=== PATIENT | male | born 1955 | race Caucasian/White ===

== ENCOUNTER 2024-10-20 06:41 | Observation (INO) ==
--- NOTE | 2024-10-20 07:05 | DR.ABDMALE ---
HPI <KATT WYATT Last Filed: 10/20/24 13:16> Time seen Time Seen by Provider: 10/20/24 07:00 HPI comment HPI Comment: History as below. Complaint Chief Complaint Doctors Comments: Patient is 69-year-old male here with lower back pain for about 4 days with nausea vomiting and diarrhea patient denies fever he is on Ozempic and at bedtime increase the dosage patient denies dysuria or trauma. Reviewed Nurses Notes Review: Yes PMH <KATT WYATT - Last Filed: 10/20/24 13:16> PMH Past Medical History: Diabetes, Dyslipidemia and Hypertension Past Surgical History: Yes Surgical History: Cholecystectomy Family History Family Medical History: Hypertension Social History Do you use any recreational Drugs:: No Travel Risk Coronavirus risk:travel/contact w/high risk person: No ROS <KATT WYATT - Last Filed: 10/20/24 13:16> Review of Systems Constitutional: No Symptoms Reported and See HPI; negative Fever Eyes: No Symptoms Reported and See HPI ENTM: No Symptoms Reported and See HPI Respiratoy: No Symptoms Reported and See HPI Cardiovascular: No Symptoms Reported and See HPI Gastrointestinal/Abdominal: See HPI, Diarrhea, Nausea and Vomiting Genitourinary: No Symptoms Reported Neurological: No Symptoms Reported Musculoskeletal: Back Pain (low back pain.) Integumentary: No Symptoms Reported Hematologic/Lymphatic: No Symptoms Reported Endocrine: No Symptoms Reported Psychiatric: No Symptoms Reported All Other Systems: Reviewed and Negative PE <KATT WYATT Last Filed: 10/20/24 13:16> Vital Signs Vital Signs: Temp Pulse Resp BP Pulse Ox O2 Del Method 10/20/24 13:30 98 H 22 97 10/20/24 13:30 107/54 10/20/24 13:20 101/60 10/20/24 13:20 102 H 14 97 10/20/24 13:15 96 H 14 96 10/20/24 13:10 107/55 10/20/24 13:10 97 H 21 95 10/20/24 13:00 111/59 10/20/24 13:00 99 H 17 98 10/20/24 12:50 105/57 10/20/24 12:50 94 H 13 96 10/20/24 12:45 88 16 96 10/20/24 12:40 97/56 10/20/24 12:40 87 16 97 10/20/24 12:30 114/58 10/20/24 12:30 91 H 14 98 10/20/24 12:20 99 H 29 H 96 10/20/24 12:20 107/74 10/20/24 12:15 92 H 15 95 10/20/24 12:10 130/63 10/20/24 12:10 102 H 16 97 10/20/24 12:00 119/64 10/20/24 12:00 91 H 15 95 10/20/24 11:50 103/64 10/20/24 11:50 86 14 95 10/20/24 11:45 89 15 95 10/20/24 11:40 92/61 10/20/24 11:40 91 H 16 96 10/20/24 11:30 98/54 10/20/24 11:30 93 H 20 96 10/20/24 11:20 86/69 10/20/24 11:20 86 16 95 10/20/24 11:18 136/64 10/20/24 11:15 89 12 95 10/20/24 11:02 133 H 21 95 10/20/24 10:33 16 10/20/24 08:03 16 10/20/24 07:33 18 10/20/24 06:42 98.3 F 95 H 20 136/64 95 Room Air General Limitations: No Limitations General Appearance: Alert and In No Apparent Distress Head Head Exam: Normal Inspection Eyes Eye exam: Normal Appearance; negative Scleral Icterus or Conjunctival Injection ENT ENT Exam: Normal Exam, Normal Oropharynx, Normal External Ear Exam and TM's Normal Bilaterally Neck Neck Exam: Normal Inspection and Trachea Midline; negative Tenderness Chest Chest Inspection: Normal Inspection, Symmetric Chest Wall Rise and Tenderness Respiratory Respiratory Exam: Normal Lung Sounds Bilat; negative Accessory Muscle Use, Chest Wall Tenderness or Respiratory Distress Respiratory Exam: Bilateral: Rhonchi Cardiovascular Cardiovascular Exam: Regular Rate, Normal Rhythm and Normal Heart Sounds; negative Systolic Murmur or Diastolic Murmur Abdominal Exam Abdominal Exam: Normal Inspection, Normal Bowel Sounds and Soft; negative Tenderness Rectal Rectal Exam: Deferred Back Back Exam: Normal Inspection; negative (R) CVA Tenderness or (L) CVA Tenderness Extremeties Extremities Exam: Normal Inspection and Normal Capillary Refill Exam: Male: Deferred Neurologic Neurological Exam: Alert and Oriented X3; negative Motor Sensory Deficit Psychiatric Psychiatric Exam: Normal Affect and Normal Mood Skin Skin Exam: Warm and Intact <Shaquille Diallo Lucio - Last Filed: 10/20/24 14:16> Vital Signs Vital Signs: Temp Pulse Resp BP Pulse Ox O2 Del Method 10/20/24 13:30 98 H 22 97 10/20/24 13:30 107/54 10/20/24 13:20 101/60 10/20/24 13:20 102 H 14 97 10/20/24 13:15 96 H 14 96 10/20/24 13:10 107/55 10/20/24 13:10 97 H 21 95 10/20/24 13:00 111/59 10/20/24 13:00 99 H 17 98 10/20/24 12:50 105/57 10/20/24 12:50 94 H 13 96 10/20/24 12:45 88 16 96 10/20/24 12:40 97/56 10/20/24 12:40 87 16 97 10/20/24 12:30 114/58 10/20/24 12:30 91 H 14 98 10/20/24 12:20 99 H 29 H 96 10/20/24 12:20 107/74 10/20/24 12:15 92 H 15 95 10/20/24 12:10 130/63 10/20/24 12:10 102 H 16 97 10/20/24 12:00 119/64 10/20/24 12:00 91 H 15 95 10/20/24 11:50 103/64 10/20/24 11:50 86 14 95 10/20/24 11:45 89 15 95 10/20/24 11:40 92/61 10/20/24 11:40 91 H 16 96 10/20/24 11:30 98/54 10/20/24 11:30 93 H 20 96 10/20/24 11:20 86/69 10/20/24 11:20 86 16 95 10/20/24 11:18 136/64 10/20/24 11:15 89 12 95 10/20/24 11:02 133 H 21 95 10/20/24 10:33 16 10/20/24 08:03 16 10/20/24 07:33 18 10/20/24 06:42 98.3 F 95 H 20 136/64 95 Room Air Abdominal Exam Abdominal Exam: negative Distention, Guarding, Rebound, Rigidity or Ascites COURSE <KATT WYATT - Last Filed: 10/20/24 13:16> Treatment Treatment: Patient signed out to Dr. King incoming physician at 8:00 AM. <Shaquille Lucio - Last Filed: 10/20/24 14:16> Treatment Treatment: Patient signed out to Dr. King incoming physician at 8:00 AM. Patient states he feels much better. We discussed results of workup. Patient states he has appointment tomorrow with his PCP and will discuss the incidental renal findings on the CT scan for follow-up. At this point I suspect colitis of infectious source although he has no risk factors for C. difficile at this time so Levaquin and Flagyl will likely suffice. Making arrangements for stool cultures. Patient states he urinated before coming in and unable to go right now. Denies discomfort. He is agreeable to return to ER if unable to void in the next few hours but states he would like to go home and follow-up with his PCP. His nausea is likely secondary to Ozempic since it seems to happen for a couple of days right after he injects. Just after orders were put in for discharge lab called with result of positive for Campy. Given increased resistance to Campylobacter over the last few years I think azithromycin would be the better option. Since he already had the first dose of Levaquin and Flagyl I will send prescription for azithromycin to start tomorrow. As patient was being discharged and nurse was pulling IV out, she noticed he started A-Fib with RvR, asymptomatic. Patient does not have history of A-fib and conversion into A-fib was witnessed. Since patient was asymptomatic and A- fib onset less than 24 hours, metoprolol 5 mg IV was started with significant improvement in rate. Patient continues to be asymptomatic. Will admit patient to Dr. Chapin and consult to cardiology. Consultation Called: 12:06 Consultation Comments: Discussed case with Dr. Douglass and she is agreeable to admission ROR <KATT WYATT - Last Filed: 10/20/24 13:16> Labs Reviewed 10/20/24 07:09 10/20/24 11:28 Laboratory: 10/20/24 09:24 Stool - Final WBC 9.5 X10^3/uL (3.6-10.0) 10/20/24 07:09 RBC 4.85 X10^6/uL (4.7-6.0) 10/20/24 07:09 Hgb 14.6 g/dL (13.5-18.0) 10/20/24 07:09 Hct 42.2 % (42.0-54.0) 10/20/24 07:09 MCV 86.9 fL (80.0-100.0) 10/20/24 07:09 MCH 30.0 pg (27.0-34.0) 10/20/24 07:09 MCHC 34.5 g/dL (33.0-35.0) 10/20/24 07:09 RDW 13.7 % (11.6-16.5) 10/20/24 07:09 Plt Count 166 X10^3/uL (150.0-450.0) 10/20/24 07:09 MPV 7.2 fL (7.4-11.0) L 10/20/24 07:09 Neut % (Auto) 84.5 % (42.0-75.0) H 10/20/24 07:09 Lymph % (Auto) 6.4 % (21.0-51.0) L 10/20/24 07:09 [place] % (Auto) 7.3 % (0.0-13.0) 10/20/24 07:09 Eos % (Auto) 0.3 % (0.9-2.9) L 10/20/24 07:09 Baso % (Auto) 1.5 % (0.2-1.0) H 10/20/24 07:09 Neut # (Auto) 8.1 x10^3/uL (2.2-4.8) H 10/20/24 07:09 Lymph # (Auto) 0.6 X10^3/uL (1.3-2.9) L 10/20/24 07:09 [place] # (Auto) 0.7 x10^3/uL (0.3-0.8) 10/20/24 07:09 Eos # (Auto) 0.0 x10^3/uL (0.0-0.2) 10/20/24 07:09 Baso # (Auto) 0.1 X10^3/uL (0.0-0.1) 10/20/24 07:09 Absolute Nucleated RBC 0.1 /100WBC 10/20/24 07:09 Sodium 133 mmol/L (136-145) L 10/20/24 11:28 Corrected Sodium 136 mmol/L (136-145) 10/20/24 11:28 Potassium 4.4 mmol/L (3.5-5.1) 10/20/24 11:28 Chloride 99 mmol/L (98-107) 10/20/24 11:28 Carbon Dioxide 21.4 mmol/L (21-32) 10/20/24 11:28 BUN 29 mg/dL (7-18) H 10/20/24 11:28 Creatinine 1.81 mg/dL (0.70-1.30) H 10/20/24 11:28 Est GFR (MDRD) Af Amer 48 (>60) L 10/20/24 11:28 Est GFR (MDRD) Non-Af 40 (>60) L 10/20/24 11:28 Glucose 218 mg/dL (65-99) H 10/20/24 11:28 Calcium 8.3 mg/dL (8.5-10.1) L 10/20/24 11:28 Corrected Calcium 8.9 mg/dL (8.5-10.1) 10/20/24 11:28 Magnesium 1.8 mg/dL (2.0-2.9) L 10/20/24 11:28 Total Bilirubin 0.80 mg/dL (0.2-1.0) 10/20/24 11:28 AST 20 Units/L (15-37) 10/20/24 11:28 ALT 21 Units/L (12-78) 10/20/24 11:28 Alkaline Phosphatase 81 Units/L (46-116) 10/20/24 11:28 Troponin I High Sens 21.8 ng/L (4.0-60.0) 10/20/24 11:28 Total Protein 8.6 g/dL (6.4-8.2) H 10/20/24 11:28 Albumin 3.2 g/dL (3.4-5.0) L 10/20/24 11:28 Globulin 5.4 g/dL (2.5-4.5) H 10/20/24 11:28 Albumin/Globulin Ratio 0.6 Ratio (1.1-2.1) L 10/20/24 11:28 Amylase 95 Units/L (25-115) 10/20/24 07:09 Lipase 38 Units/L (16-77) 10/20/24 07:09 Stl Occult Blood (IFOB) y (NEGATIVE) 10/20/24 09:24 Stool for White Cells Positive (NEGATIVE) A 10/20/24 09:24 Stl C. diff Tox B Gene Negative (NEGATIVE) 10/20/24 09:24 Stl C. diff [id number] Presumptive negative (NEGATIVE) 10/20/24 09:24 Cryptosporid parvum Ag Positive (NEGATIVE) A 10/20/24 09:24 Giardia lamblia Ag Negative (NEGATIVE) 10/20/24 09:24 <Shaquille Lucio - Last Filed: 10/20/24 14:16> Labs Reviewed Laboratory Results Reviewed?: Yes Laboratory: 10/20/24 09:24 Stool - Final WBC 9.5 X10^3/uL (3.6-10.0) 10/20/24 07:09 RBC 4.85 X10^6/uL (4.7-6.0) 10/20/24 07:09 Hgb 14.6 g/dL (13.5-18.0) 10/20/24 07:09 Hct 42.2 % (42.0-54.0) 10/20/24 07:09 MCV 86.9 fL (80.0-100.0) 10/20/24 07:09 MCH 30.0 pg (27.0-34.0) 10/20/24 07:09 MCHC 34.5 g/dL (33.0-35.0) 10/20/24 07:09 RDW 13.7 % (11.6-16.5) 10/20/24 07:09 Plt Count 166 X10^3/uL (150.0-450.0) 10/20/24 07:09 MPV 7.2 fL (7.4-11.0) L 10/20/24 07:09 Neut % (Auto) 84.5 % (42.0-75.0) H 10/20/24 07:09 Lymph % (Auto) 6.4 % (21.0-51.0) L 10/20/24 07:09 [place] % (Auto) 7.3 % (0.0-13.0) 10/20/24 07:09 Eos % (Auto) 0.3 % (0.9-2.9) L 10/20/24 07:09 Baso % (Auto) 1.5 % (0.2-1.0) H 10/20/24 07:09 Neut # (Auto) 8.1 x10^3/uL (2.2-4.8) H 10/20/24 07:09 Lymph # (Auto) 0.6 X10^3/uL (1.3-2.9) L 10/20/24 07:09 [place] # (Auto) 0.7 x10^3/uL (0.3-0.8) 10/20/24 07:09 Eos # (Auto) 0.0 x10^3/uL (0.0-0.2) 10/20/24 07:09 Baso # (Auto) 0.1 X10^3/uL (0.0-0.1) 10/20/24 07:09 Absolute Nucleated RBC 0.1 /100WBC 10/20/24 07:09 Sodium 133 mmol/L (136-145) L 10/20/24 11:28 Corrected Sodium 136 mmol/L (136-145) 10/20/24 11:28 Potassium 4.4 mmol/L (3.5-5.1) 10/20/24 11:28 Chloride 99 mmol/L (98-107) 10/20/24 11:28 Carbon Dioxide 21.4 mmol/L (21-32) 10/20/24 11:28 BUN 29 mg/dL (7-18) H 10/20/24 11:28 Creatinine 1.81 mg/dL (0.70-1.30) H 10/20/24 11:28 Est GFR (MDRD) Af Amer 48 (>60) L 10/20/24 11:28 Est GFR (MDRD) Non-Af 40 (>60) L 10/20/24 11:28 Glucose 218 mg/dL (65-99) H 10/20/24 11:28 Calcium 8.3 mg/dL (8.5-10.1) L 10/20/24 11:28 Corrected Calcium 8.9 mg/dL (8.5-10.1) 10/20/24 11:28 Magnesium 1.8 mg/dL (2.0-2.9) L 10/20/24 11:28 Total Bilirubin 0.80 mg/dL (0.2-1.0) 10/20/24 11:28 AST 20 Units/L (15-37) 10/20/24 11:28 ALT 21 Units/L (12-78) 10/20/24 11:28 Alkaline Phosphatase 81 Units/L (46-116) 10/20/24 11:28 Troponin I High Sens 21.8 ng/L (4.0-60.0) 10/20/24 11:28 Total Protein 8.6 g/dL (6.4-8.2) H 10/20/24 11:28 Albumin 3.2 g/dL (3.4-5.0) L 10/20/24 11:28 Globulin 5.4 g/dL (2.5-4.5) H 10/20/24 11:28 Albumin/Globulin Ratio 0.6 Ratio (1.1-2.1) L 10/20/24 11:28 Amylase 95 Units/L (25-115) 10/20/24 07:09 Lipase 38 Units/L (16-77) 10/20/24 07:09 Stl Occult Blood (IFOB) y (NEGATIVE) 10/20/24 09:24 Stool for White Cells Positive (NEGATIVE) A 10/20/24 09:24 Stl C. diff Tox B Gene Negative (NEGATIVE) 10/20/24 09:24 Stl C. diff [id number] Presumptive negative (NEGATIVE) 10/20/24 09:24 Cryptosporid parvum Ag Positive (NEGATIVE) A 10/20/24 09:24 Giardia lamblia Ag Negative (NEGATIVE) 10/20/24 09:24 Other Results Comments: Name: MIKAYLA GUTIERREZ JR : 1955 Sex: M Location: Order Number(s): [id number] Procedure(s):CT ABDOMEN/PELVIS W/O CON Ordering Physician: KATT WYATT [facility] Service Date: 10/20/24 Service Time: 732 EXAM: ABDOMEN/PELVIS W/O CON HISTORY: LOWER BACK PAIN; COMPARISON: None TECHNIQUE: CT of the abdomen and pelvis obtained without IV contrast. Study limited due to lack of IV contrast. Dose reduction techniques including Automated Exposure Control (AEC) and adjustment of mA and kV were utilized. FINDINGS: The visualized portions of the lower thorax demonstrate no acute process. Coronary calcifications. No acute osseous abnormality. Multilevel degenerative changes in the visualized spine. The liver, spleen, pancreas, bilateral adrenal glands, and bilateral kidneys demonstrate no acute process given lack of IV contrast. Prior cholecystectomy. Indeterminate 2.3 cm right renal lesion. Indeterminate left renal lesion. No evidence of bowel obstruction. The appendix is not definitively visualized. No secondary signs of appendicitis. Diverticulosis without evidence of diverticulitis. Long segment thickening of the ascending and proximal transverse colon. The bladder is unremarkable. No free air or fluid. Nonaneurysmal aorta. Scattered vascular calcifications. IMPRESSION: Long segment thickening of the proximal colon concerning for infectious/inflammatory colitis. Recommend colonoscopy after resolution of acute illness. Diverticulosis without evidence of diverticulitis. Indeterminate bilateral renal lesions. Recommend renal ultrasound for further evaluation. THIS IS AN ELECTRONICALLY VERIFIED FINAL REPORT 10/20/2024 8:04 AM - Electronically signed by Dmitriy Guthrie MD Opioid <KATT WYATT - Last Filed: 10/20/24 13:16> Opioid Risk Tool Age (Brandon box if 16-45): No History of Preadolescent Sexual Abuse: No Total: 0 Total Score Risk Category: Low Risk Copyright: Mau FOY predicting aberrant behaviors <Shaquille Lucio - Last Filed: 10/20/24 14:16> Opioid Risk Tool Total: 0 Total Score Risk Category: Low Risk Discharge Plan Diagnosis Discharge Problem: Atrial fibrillation with rapid ventricular response, Colitis presumed infectious, Nausea, Kidney lesion, Campylobacter diarrhea Discharge Plan Patient Disposition: 09 ADMITTED INPATIENT Condition: Stable Orders to Discharge Patient Discharge Orders: Transfer (Routine); Ordered 10/20/24 Ordered By: Shaquille Lucio
[2024-10-20 07:18] LABS: MEAN PLATELET VOLUME 7.2 fL (7.4-11.0)
[2024-10-20 07:21] LABS: RED CELL DISTRIBUTION WIDTH 13.7 % (11.6-16.5)
[2024-10-20 07:29] LABS: COR NA(FOR HYPERGLY) 134 mmol/L (136-145); CREATININE 1.67 mg/dL (0.70-1.30); eGFR NON BLACK RACES 43 (>60)
[2024-10-20] MEDS: ZOFRAN INJ 4 MG VIAL IM ONE (07:33)
[2024-10-20] MEDS: MORPHINE SULFATE INJ 4 MG IM ONE (07:33)
[2024-10-20] MEDS: NS 1,000 ML IV 1,000 ML IV ONE ×2 (07:38→11:27)
--- NOTE | 2024-10-20 08:07 | CT ---
EXAM: ABDOMEN/PELVIS W/O CON HISTORY: LOWER BACK PAIN; COMPARISON: None TECHNIQUE: CT of the abdomen and pelvis obtained without IV contrast. Study limited due to lack of IV contrast. Dose reduction techniques including Automated Exposure Control (AEC) and adjustment of mA and kV were utilized. FINDINGS: The visualized portions of the lower thorax demonstrate no acute process. Coronary calcifications. No acute osseous abnormality. Multilevel degenerative changes in the visualized spine. The liver, spleen, pancreas, bilateral adrenal glands, and bilateral kidneys demonstrate no acute process given lack of IV contrast. Prior cholecystectomy. Indeterminate 2.3 cm right renal lesion. Indeterminate left renal lesion. No evidence of bowel obstruction. The appendix is not definitively visualized. No secondary signs of appendicitis. Diverticulosis without evidence of diverticulitis. Long segment thickening of the ascending and proximal transverse colon. The bladder is unremarkable. No free air or fluid. Nonaneurysmal aorta. Scattered vascular calcifications. IMPRESSION: Long segment thickening of the proximal colon concerning for infectious/inflammatory colitis. Recommend colonoscopy after resolution of acute illness. Diverticulosis without evidence of diverticulitis. Indeterminate bilateral renal lesions. Recommend renal ultrasound for further evaluation. THIS IS AN ELECTRONICALLY VERIFIED FINAL REPORT 10/20/2024 8:04 AM - Electronically signed by Dmitriy Guthrie MD
[2024-10-20] MEDS: VANCOMYCIN HCL 250 MG CAP PO ONE (08:32)
[2024-10-20] MEDS: LEVAQUIN TAB 750 MG PO ONE (08:35)
[2024-10-20] MEDS: FLAGYL TAB 250 MG PO ONE ×2 (08:35→19:46)
[2024-10-20] MEDS: FLOMAX PO ONE (09:04)
[2024-10-20] MEDS: NS 500 ML IV 500 ML IV ONE ×2 (09:04→19:47)
[2024-10-20 11:05] LABS: CRYPTOSPORIDIUM PARVUM ANTIGEN POSITIVE (NEGATIVE); GIARDIA LAMBLIA ANTIGEN NEGATIVE (NEGATIVE)
--- NOTE | 2024-10-20 11:05 | EKG ---
Test Reason : tachycardia Blood Pressure : */* mmHG Vent. Rate : 117 BPM Atrial Rate : * BPM P-R Int : * ms QRS Dur : 84 ms QT Int : 318 ms P-R-T Axes : * -3 3 degrees QTc Int : 443 ms Atrial fibrillation with rapid ventricular response Nonspecific ST abnormality Abnormal ECG No previous ECGs available Confirmed by Jesse Aguilar MD ([id number]) on 10/20/2024 12:55:03 PM Referred By: Confirmed By: Jesse Aguilar MD
[2024-10-20] MEDS: LOPRESSOR INJ 5 MG AMP IVP ONE (11:18)
[2024-10-20 11:50] LABS: COR CA(FOR HYPOALB) 8.9 mg/dL (8.5-10.1); COR NA(FOR HYPERGLY) 136.0 mmol/L (136-145); CREATININE 1.81 mg/dL (0.70-1.30); eGFR NON BLACK RACES 40.0 (>60)
[2024-10-20] MEDS ORDERED: CARDIZEM INJ 125 MG VIAL 125 MG in NS 100 ML IV 100 ML IV PRN (12:11)
[2024-10-20] MEDS: MAGNESIUM SULFATE 1 GRAM/100 mL PREMIX 1 G/100 ML BAG IV ONE ×2 (12:18→19:46)
[2024-10-20] MEDS ORDERED: NovoLIN R (or HumuLIN R) SUBCUT PRN (14:22)
[2024-10-20] MEDS ORDERED: CONSULT PHARMACY - POTASSIUM & MAGNESIUM XX SCH (15:00)
[2024-10-20] MEDS: NS 1,000 ML IV 1,000 ML IV SCH (15:40)
[2024-10-20] MEDS: MAG-OX TAB PO NR (15:40)
[2024-10-20] MEDS: LOPRESSOR TAB 25 MG PO SCH (15:40)
[2024-10-20] MEDS: LOVENOX INJ 120 MG SYR SC SCH (15:41)
[2024-10-20 16:13] VITALS: BMI 38.4
[2024-10-20 19:08] LABS: BLOOD/HEMOGLOBIN,URINE 4+ (NEGATIVE); LEUKOCYTE ESTERASE ,URINE 1+ (NEGATIVE); NITRITES,URINE NEGATIVE (NEGATIVE)
[2024-10-20 19:10] LABS: APPEARANCE,URINE CLEAR (CLEAR)
[2024-10-20 19:22] LABS: SQUAMOUS EPITHELIAL CELL,UR RARE /HPF (NEGATIVE)
[2024-10-20] MEDS: LOVENOX INJ 100 MG SYR SC SCH (19:45)
[2024-10-20] MEDS: NS 1,000 ML IV 1,000 ML ONE ×2 (19:45→19:46)
[2024-10-20] MEDS: NS 100 ML IV 100 ML ONE (19:46)
[2024-10-20] MEDS: CARDIZEM INJ 125 MG VIAL ONE (19:46)
[2024-10-20] MEDS: LEVAQUIN TAB 750 MG ONE (19:47)
[2024-10-20] MEDS: LOPRESSOR INJ 5 MG AMP ONE (19:47)
[2024-10-20] MEDS: FLOMAX ONE (19:47)
[2024-10-20] MEDS: SNACK - Diabetic Appropriate PO SCH (20:00)
[2024-10-21 05:47] LABS: MEAN PLATELET VOLUME 7.8 fL (7.4-11.0); RED CELL DISTRIBUTION WIDTH 13.8 % (11.6-16.5)
[2024-10-21 05:55] LABS: COR CA(FOR HYPOALB) 8.9 mg/dL (8.5-10.1); COR NA(FOR HYPERGLY) 137.0 mmol/L (136-145); CREATININE 1.78 mg/dL (0.70-1.30); eGFR NON BLACK RACES 40.0 (>60)
[2024-10-21 07:36] VITALS: RESP 16
[2024-10-21] MEDS: ZITHROMAX TAB 250 MG PO SCH (08:10)
[2024-10-21] MEDS: BENICAR PO SCH (08:10)
[2024-10-21] MEDS: LIPITOR TAB 20 MG PO SCH (08:10)
--- NOTE | 2024-10-21 08:23 | EKG ---
Test Reason : arrythmia Blood Pressure : */* mmHG Vent. Rate : 85 BPM Atrial Rate : * BPM P-R Int : * ms QRS Dur : 88 ms QT Int : 362 ms P-R-T Axes : * -21 11 degrees QTc Int : 430 ms Atrial fibrillation Low voltage QRS Abnormal ECG When compared with ECG of 20-OCT-2024 11:05, heart rate down Confirmed by Jesse Aguilar MD ([id number]) on 10/21/2024 10:35:13 AM Referred By: Confirmed By: Jesse Aguilar MD
[2024-10-21] MEDS: NITAZOXANIDE PO SCH (10:44)
--- NOTE | 2024-10-21 11:10 | RAD ---
EXAM: CHEST, 1 VIEW HISTORY: NEW ONSET AFIB ; DM, GERD, HTN, VERTIGO, PSORIASIS SX: APPY, RICHI COMPARISON: None FINDINGS: The lungs are clear. No pneumothorax or effusion. Heart size is normal. The bones are unremarkable. EKG leads are noted. IMPRESSION: 1. No significant abnormality THIS IS AN ELECTRONICALLY VERIFIED FINAL REPORT 10/21/2024 11:07 AM - Electronically signed by Richi Delgadillo MD
[2024-10-21 12:09] VITALS: BP 91/64; PULSE 92; TEMP 98.3; O2SAT 95
--- NOTE | 2024-10-21 13:16 | DR.CONSULT ---
CONSULT Consultation for Day of: Date: 10/21/24 Allergies Allergies Allergy/AdvReac Type Severity Reaction Status Date / Time Penicillins Allergy Verified 10/20/24 06:42 History of Present Illness History of Present Illness: 69 yo male w DM/pvd/hlp/htn- came to er feeling poorly- n/v/d/abd pain- cultures show campylobacter- states 2 weeks ago ekg ok- er states went into afib in ER- given BB/lovenox and still in afib- possible d/c today- never had dopplers/cad screen w pvd Past Medical History Past Medical History: Diabetes, Dyslipidemia and Hypertension Past Surgical History Surgical History: Appendectomy and Cholecystectomy Family History Family Medical History: Diabetes Mellitus and Hypertension Social History Does patient currently use any type of tobacco product: No Have you used tobacco products in the last 12 months: No Type of Tobacco Use: None Does any household member use tobacco: No Alcohol Use: None Drug Use: None Medications Home Medications: Penicillins Allergy (Verified 10/20/24 06:42) CONTINUE taking the following medications omeprazole 20 mg capsule,delayed release 20 mg PO QAM 10/20/24 [History] semaglutide 1 mg/dose (4 mg/3 mL) subcutaneous pen injector (Ozempic) 1 mg subcut QWEEK 10/20/24 [History] New Prescriptions azithromycin 500 mg tablet 500 mg PO QDAY 3 days #3 tabs 10/20/24 [Rx] ondansetron 4 mg disintegrating tablet 4 mg PO TID PRN nausea and vomiting #14 tabs 10/20/24 [Rx] Physical Exam Vital Signs: Vital Signs Temperature 98.3 F Temperature 97.5 F Pulse Rate [Left Radial] 92 Pulse Rate [Left Radial] 93 Respiratory Rate 16 Respiratory Rate 16 Blood Pressure [Left Arm] 91/64 Blood Pressure [Left Arm] 127/64 O2 Sat by Pulse Oximetry 95 O2 Sat by Pulse Oximetry 97 alert ox3 nad no bruits clear lungs irreg irreg rebecca/hsm protuberant abd/soft minimal edema labs:hct 38 wbc 6.0 cr 1.78 ( 1.69 in 2023) tsh normal stool: campy cxr: nad ekg: afib echo: afib ef 50% poor images Plan (1) Atrial fibrillation with rapid ventricular response: Status: Acute Narrative Support Text: new diagnosis- suspect related to stress of infection Plan: eliquis/bb- time to get over campy infection (2) Campylobacter diarrhea: Status: Acute (3) Hyperlipidemia: Status: Acute (4) PVD (peripheral vascular disease): Status: Acute Plan: needs dopplers/stress test in future (5) Diabetes: Status: Acute (6) Hypertension: Status: Acute
[2024-10-21] MEDS: ELIQUIS PO SCH (13:41)
[2024-10-21] MEDS ORDERED: LOPRESSOR TAB 25 MG PO SCH ×2 (14:00→21:00)
--- NOTE | 2024-10-22 16:13 | DR.SSS ---
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 ER workup included CTAP which was positive for colitis. Patient tested positive for campy and Cryptosporidium. He was started on antibiotics and fluids. Patient was stable for discharge but at the time was noted to be in A-fib RVR with heart rate above 130. He was given IV metoprolol admitted for further management. Past Medical History Past Medical History: Diabetes, Dyslipidemia and Hypertension Past Surgical History Surgical History: Appendectomy and Cholecystectomy Allergies Allergies Allergy/AdvReac Type Severity Reaction Status Date / Time Penicillins Allergy Verified 10/20/24 06:42 Medications Home Medications: Penicillins Allergy (Verified 10/20/24 06:42) CONTINUE taking the following medications omeprazole 20 mg capsule,delayed release 20 mg PO QAM 10/20/24 [History] semaglutide 1 mg/dose (4 mg/3 mL) subcutaneous pen injector (Ozempic) 1 mg subcut QWEEK 10/20/24 [History] New Prescriptions azithromycin 500 mg tablet 500 mg PO QDAY 3 days #3 tabs 10/20/24 [Rx] ondansetron 4 mg disintegrating tablet 4 mg PO TID PRN nausea and vomiting #14 tabs 10/20/24 [Rx] apixaban 5 mg tablet (Eliquis) 5 mg PO BID #60 tabs 10/21/24 [Rx] metoprolol tartrate 50 mg tablet 50 mg PO BID #60 tabs 10/21/24 [Rx] Family History Family Medical History: Diabetes Mellitus and Hypertension Social History Does patient currently use any type of tobacco product: No Have you used tobacco products in the last 12 months: No Type of Tobacco Use: None Does any household member use tobacco: No Alcohol Use: None Drug Use: None Review of Systems Constitutional: Weakness Eyes: No Symptoms Reported ENT: No Symptoms Reported Respiratory: No Symptoms Reported Cardiovascular: No Symptoms Reported Gastrointestinal: Nausea, Vomiting and Abdominal Pain Genitourinary: No Symptoms Reported Musculoskeletal: No Symptoms Reported Skin: No Symptoms Reported Neurological: No Symptoms Reported Physical Exam Vital Signs: Last Vital Signs Temp 98.3 F 10/21/24 12:00 Pulse 92 H 10/21/24 12:00 Resp 16 10/21/24 12:00 BP 91/64 10/21/24 12:00 Pulse Ox 95 10/21/24 12:00 O2 Del Method Room Air 10/21/24 12:00 Oriented: Normal Respiratory: Clear Throughout Cardiovascular: Tachycardia Auscultation: Bowel Sounds: Normal Palpation: Normal Tenderness: Normal Skin: Normal Musculoskeletal: Normal Psychiatric: Normal Mood Description: Calm Affect: Normal Speech Pattern: Clear and Appropriate Labs Labs: Laboratory Last Values WBC 6.0 X10^3/uL (3.6-10.0) 10/21/24 05:12 RBC 4.39 X10^6/uL (4.7-6.0) L 10/21/24 05:12 Hgb 13.2 g/dL (13.5-18.0) L 10/21/24 05:12 Hct 38.2 % (42.0-54.0) L 10/21/24 05:12 MCV 87.1 fL (80.0-100.0) 10/21/24 05:12 MCH 30.1 pg (27.0-34.0) 10/21/24 05:12 MCHC 34.6 g/dL (33.0-35.0) 10/21/24 05:12 RDW 13.8 % (11.6-16.5) 10/21/24 05:12 Plt Count 139 X10^3/uL (150.0-450.0) L 10/21/24 05:12 MPV 7.8 fL (7.4-11.0) 10/21/24 05:12 Neut % (Auto) 74.5 % (42.0-75.0) 10/21/24 05:12 Lymph % (Auto) 13.8 % (21.0-51.0) L 10/21/24 05:12 [place] % (Auto) 10.9 % (0.0-13.0) 10/21/24 05:12 Eos % (Auto) 0.6 % (0.9-2.9) L 10/21/24 05:12 Baso % (Auto) 0.2 % (0.2-1.0) 10/21/24 05:12 Neut # (Auto) 4.5 x10^3/uL (2.2-4.8) 10/21/24 05:12 Lymph # (Auto) 0.8 X10^3/uL (1.3-2.9) L 10/21/24 05:12 [place] # (Auto) 0.7 x10^3/uL (0.3-0.8) 10/21/24 05:12 Eos # (Auto) 0.0 x10^3/uL (0.0-0.2) 10/21/24 05:12 Baso # (Auto) 0.0 X10^3/uL (0.0-0.1) 10/21/24 05:12 Absolute Nucleated RBC 0.0 /100WBC 10/21/24 05:12 Sodium 136 mmol/L (136-145) 10/21/24 05:12 Corrected Sodium 137 mmol/L (136-145) 10/21/24 05:12 Potassium 4.6 mmol/L (3.5-5.1) 10/21/24 05:12 Chloride 100 mmol/L (98-107) 10/21/24 05:12 Carbon Dioxide 23.6 mmol/L (21-32) 10/21/24 05:12 BUN 34 mg/dL (7-18) H 10/21/24 05:12 Creatinine 1.78 mg/dL (0.70-1.30) H 10/21/24 05:12 Est GFR (MDRD) Af Amer 49 (>60) L 10/21/24 05:12 Est GFR (MDRD) Non-Af 40 (>60) L 10/21/24 05:12 Glucose 159 mg/dL (65-99) H 10/21/24 05:12 POC Glucose (mg/dL) 131 mg/dL (65-99) H 10/21/24 11:11 Calcium 8.1 mg/dL (8.5-10.1) L 10/21/24 05:12 Corrected Calcium 8.9 mg/dL (8.5-10.1) 10/21/24 05:12 Magnesium 2.2 mg/dL (2.0-2.9) 10/21/24 05:12 Total Bilirubin 0.60 mg/dL (0.2-1.0) 10/21/24 05:12 AST 18 Units/L (15-37) 10/21/24 05:12 ALT 21 Units/L (12-78) 10/21/24 05:12 Alkaline Phosphatase 74 Units/L (46-116) 10/21/24 05:12 Troponin I High Sens 21.8 ng/L (4.0-60.0) 10/20/24 11:28 Total Protein 8.0 g/dL (6.4-8.2) 10/21/24 05:12 Albumin 3.0 g/dL (3.4-5.0) L 10/21/24 05:12 Globulin 5.0 g/dL (2.5-4.5) H 10/21/24 05:12 Albumin/Globulin Ratio 0.6 Ratio (1.1-2.1) L 10/21/24 05:12 Amylase 95 Units/L (25-115) 10/20/24 07:09 Lipase 38 Units/L (16-77) 10/20/24 07:09 TSH 3rd Generation 3.396 uIU/mL (0.358-3.74) 10/20/24 11:28 Specimen Type Clean catch urine 10/20/24 19:00 Urine Color Dark yellow (YELLOW) 10/20/24 19:00 Urine Appearance Clear (CLEAR) 10/20/24 19:00 Urine pH 5.0 (5.0 - 8.0) 10/20/24 19:00 Ur Specific [place] 1.025 (1.000-1.030) 10/20/24 19:00 Urine Protein 2+ (NEGATIVE) 10/20/24 19:00 Urine Glucose (UA) Negative (NEGATIVE) 10/20/24 19:00 Urine Ketones 1+ (NEGATIVE) 10/20/24 19:00 Urine Blood 4+ (NEGATIVE) 10/20/24 19:00 Urine Nitrite Negative (NEGATIVE) 10/20/24 19:00 Urine Bilirubin 1+ (NEGATIVE) 10/20/24 19:00 Urine Urobilinogen Normal (NORMAL) 10/20/24 19:00 Ur Leukocyte Esterase 1+ (NEGATIVE) 10/20/24 19:00 Urine RBC 5-10 /HPF (0-3) A 10/20/24 19:00 Urine WBC 3-5 /HPF (0-5) 10/20/24 19:00 Ur Squamous Epith Cells Rare /HPF (NEGATIVE) 10/20/24 19:00 Amorphous Sediment 1+ /HPF (NEGATIVE) 10/20/24 19:00 Urine Bacteria Negative /HPF (NEGATIVE) 10/20/24 19:00 Granular Casts Many /LPF (NEGATIVE) 10/20/24 19:00 Urine Mucus Few /HPF (NEGATIVE) 10/20/24 19:00 Ur Culture Indicated? No/not indicated 10/20/24 19:00 Stl Occult Blood (IFOB) Positive (NEGATIVE) A 10/20/24 09:24 Stool for White Cells Positive (NEGATIVE) A 10/20/24 09:24 Stl C. diff Tox B Gene Negative (NEGATIVE) 10/20/24 09:24 Stl C. diff [id number] Presumptive negative (NEGATIVE) 10/20/24 09:24 Cryptosporid parvum Ag Positive (NEGATIVE) A 10/20/24 09:24 Giardia lamblia Ag Negative (NEGATIVE) 10/20/24 09:24 Hospital Course Hospital Course: Patient was admitted with A-fib RVR and colitis. He was started on IV antibiotics and fluids. Cardiology was consulted and started patient on metoprolol tartrate and full dose Lovenox. Echocardiogram was done. He was switched to Eliquis in the morning. He was feeling better, diarrhea had improved. He was back in normal sinus rhythm. He was tolerating p.o. intake. He was stable to be discharged home. He was discharged home on azithromycin, Zofran, Alinia along with Eliquis and metoprolol tartrate. Follow-up with PCP and cardiology as scheduled. Discharge Medications Discharge Medications: Home Medication List azithromycin 500 mg tablet 500 mg PO QDAY 3 days #3 tabs 10/20/24 [Rx] omeprazole 20 mg capsule,delayed release 20 mg PO QAM 10/20/24 [History] ondansetron 4 mg disintegrating tablet 4 mg PO TID PRN nausea and vomiting #14 tabs 10/20/24 [Rx] semaglutide 1 mg/dose (4 mg/3 mL) subcutaneous pen injector (Ozempic) 1 mg subcut QWEEK 10/20/24 [History] apixaban 5 mg tablet (Eliquis) 5 mg PO BID #60 tabs 10/21/24 [Rx] metoprolol tartrate 50 mg tablet 50 mg PO BID #60 tabs 10/21/24 [Rx] Prescriptions: apixaban [Eliquis] MIKAYLA TORRES azithromycin Shaquille Lucio metoprolol tartrate MIKAYLA TORRES ondansetron Shaquille Lucio Discharge Disposition Discharge Disposition: home Discharge Plan Discharge Plan Patient Disposition: HOME, SELF-CARE Condition: Stable Health Concerns: Post Hospitalization: new medications and changes needed to prevent readmission or further decline. Pt educated and given instructions on all concerns. Care Plan Goals: Problem: Infection Goal: Temperature within normal limits. Resolved infection. Instructions: Follow provided instructions. Follow up with primary physician as directed. Contact primary care physician or report to the closest Emergency Room if condition worsens. Plan of Treatment: Continue with present treatment and follow up plan. Pt is to keep follow up appointment as instructed and take medications as ordered. Assessment: No acute distress noted at discharge. Prescription drug monitoring program results: PDMP reviewed and no concerns identified Prescriptions: New ondansetron 4 mg tablet,disintegrating 4 mg PO TID PRN (Reason: nausea and vomiting) Qty: 14 0RF azithromycin 500 mg tablet 500 mg PO QDAY 3 Days Qty: 3 0RF metoprolol tartrate 50 mg Tablet 50 mg PO BID Qty: 60 0RF Eliquis 5 mg Tablet 5 mg PO BID Qty: 60 0RF Rx Instructions: pt is to start tonight No Action atorvastatin 20 mg tablet 20 mg PO QDAY glipizide 10 mg tablet 10 mg PO QAM metformin 1,000 mg tablet 1,000 mg PO QDAY olmesartan 40 mg tablet 40 mg PO QDAY omeprazole 20 mg capsule,delayed release(DR/EC) 20 mg PO QAM Ozempic 1 mg/dose (4 mg/3 mL) pen injector 1 mg SUBCUT QWEEK Orders to Discharge Patient Discharge Orders: Discharge (Routine); Ordered 10/21/24 Ordered By: Rosi Douglass Follow ups/Referrals Follow ups/Referrals: [facility] [Other] - 10/29/24 8:30 am MIKAYLA TORRES MD [STAFF PHYSICIAN, Cardiology] - 11/03/24 3:00 pm Instructions Instructions: Bleeding Precautions When on Anticoagulant Therapy, Adult, Campylobacter Gastroenteritis, Cryptosporidiosis, Nausea and Vomiting, Adult, [id number], Inflammation of the Colon (Colitis): What to Know, Diarrhea, Adult, [id number], Atrial Fibrillation, [id number] Stand Alone Forms: Find Help Web Site, Post Hospital Follow Up Care Print Language: GREEK
== END 2024-10-21 13:55 | disposition home or self-care (01) ==
LOC: MED/SURG 06:41 → ER 06:41 → MED/SURG 15:31
PROVIDERS: ADMIT Internal Medicine; ATTEND Internal Medicine
DX: I48.91 Unspecified atrial fibrillation; R00.0 Tachycardia, unspecified; I10 Essential (primary) hypertension; A07.2 Cryptosporidiosis; E87.1 Hypo-osmolality and hyponatremia; I73.89 Other specified peripheral vascular diseases; E86.0 Dehydration; B96.29 Other Escherichia coli [E. coli] as the cause of diseases classified elsewhere; N17.8 Other acute kidney failure; A04.5 Campylobacter enteritis; E11.65 Type 2 diabetes mellitus with hyperglycemia; R94.31 Abnormal electrocardiogram [ECG] [EKG]; K92.1 Melena; M54.59 Other low back pain; E83.51 Hypocalcemia; E83.42 Hypomagnesemia; Z29.89 Encounter for other specified prophylactic measures; E78.5 Hyperlipidemia, unspecified